=== PATIENT | male | born 1935 | race Caucasian/White ===

== ENCOUNTER → 2018-06-13 11:28 | Outpatient (CLI) | payer MEDICARE, SELFPAY ==
--- NOTE | 2018-06-13 | DI.NM.S_ITS ---
PROCEDURE: NM BONE SCAN WHOLE BODY RADIOPHARMACEUTICAL: 18.8 mCi Tc-99m MDP IV. INDICATIONS: CANCER TECHNIQUE: Delayed whole-body scintigrams were obtained approximately 3-4 hours after intravenous injection of radiotracer. COMPARISON: RG, CT ABDOMEN/PELVIS WITHOUT CONTRAST, 03/10/2013, 9:46. FINDINGS: There are foci of increased uptake involving the right fifth and seventh ribs suspicious for metastasis. Increased uptake is also noted in the proximal right femoral shaft suspicious for metastasis. No lesions are identified in skull, sternum, clavicles, scapulae, bony pelvis, and visualized shafts of the long bones. There is increased uptake in cervical and thoracic kidney secondary to degenerative disc disease; early metastasis to spine could be obscured by degenerative changes. There are foci of increased periarticular activity involving shoulders bilaterally, right knee and right ankle, compatible with degenerative/arthritic changes. Distended urinary bladder. IMPRESSION: 1. Abnormal uptake involving the right fifth and seventh ribs, as well as the proximal right femoral shaft, suspicious for osseous metastases. Recommend radiographic correlation. 2. Increased uptake in cervical and thoracic spine may be secondary to degenerative disc disease, which could obscure early metastasis. Radiographic correlation is recommended. Dictated by: Mary Anne Gonzalez M.D. on 06/13/2018 at 16:19 Approved by: Mary Anne Gonzalez M.D. on 06/13/2018 at 16:25
== END ==
PROVIDERS: Family Provider Family Medicine Geriatric Medicine; Visit Provider Internal Medicine
DX: C61 Malignant neoplasm of prostate (principal)
CPT/HCPCS: 78306; A9503